=== PATIENT | male | born 1950 | race Caucasian/White ===

== ENCOUNTER 2016-09-04 16:46 | Inpatient (IN) | payer BC, MEDICARE ==
--- NOTE | ~2016-09-04 | CN ---
Consultation Report [facility] [address] [place]. [address] NAME: LLOYD ROMERO : 50 STATUS : ADM IN [facility]#: [id number] AGE: 66 ADM/REG DATE : 09/04/16 MR#: [id number] REPORT SERV DATE: 09/09/16 DICTATED BY: JUAN R KNUTSON DATE: 09/08/16 REPORT STATUS : Draft TRANSCRIBED BY: MODKarie DATE: 09/08/16 INFECTIOUS DISEASE CONSULT DATE OF CONSULTATION: REASON FOR CONSULT: Positive sputum culture for gram-negative rods and history of C. diff. 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 Johan Liu with Pulmonary. He was admitted on the 09/04/2016 for high fever. He tells me that he was in [place], [place], when he developed chills. Upon returning home to [place], he noticed the fever. He came to the emergency room where his temperature was 103.1. He also noticed some increased sputum production of green sputum. To me, he did not report any increased cough or shortness of breath or chest pain, although he did mention with another physician some right lateral posterior chest pain increased by coughing. He was started on cefepime, vancomycin plus he got a high dose of Solu-Medrol in the emergency room. LAB WORK: On admission, WBC 13, platelets 149, creatinine 0.9. Lactic acid 1.0. Urinalysis unremarkable. ABGs showed a PaO2 of 115 and saturation 98% on 44%. No sputum culture was collected on admission. This was done the next day on the 09/05/2016 and is currently growing sparse gram-negative rods that were not identified. Of note is that the procalcitonin on the 09/05/2016 was 0.2. He was continued on cefepime and he feels better. There is no recorded fever, and he coughs mostly after breathing treatments then in the morning, so he has no increased sputum production and no chest pain. He did not report any diarrhea. No nausea. No urinary symptoms. No toothaches. No skin rashes. No skin sores. PAST MEDICAL HISTORY: He was diagnosed with sarcoidosis a long time ago at [facility]. After that he moved to multiple places including [place], [place]; [place], [place]; [place], [place]; and that he has been in [place], [place] for 11 years. He states he did well until he moved to this area. He thinks he had workup by Dr. Liu for immune deficiency and allergies. He saw an lacing string cutter at one time. He took the steroids for a long period of time and developed osteoporosis and multiple vertebral fractures requiring kyphoplasty. He also apparently developed diabetes, although his last hemoglobin A1c in our computer was below 6. Chart mentions history of enlarged prostate, history of cholecystectomy, and history of kidney stones. ALLERGIES: AMONG OTHER SULFA CAUSED RASH. LISTED ARE GLUTEN AND MILK. 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 He has not really been around the children. He did not wear a mask. He does have grandchildren, but none of that they have Consultation Report [address] [place]. [address] NAME: LLOYD ROMERO : 50 STATUS : ADM IN [facility]#: [id number] AGE: 66 ADM/REG DATE : 09/04/16 MR#: [id number] REPORT SERV DATE: 09/09/16 DICTATED BY: JUAN R KNUTSON DATE: 09/08/16 REPORT STATUS : Draft TRANSCRIBED BY: ERICA DATE: 09/08/16 been sick, no immediate contacts that have been sick. He did not eat any foods that were raw. He states he received the usual vaccines including anti-influenza and anti- pneumococcal vaccine. He does not smoke. He has no pets. FAMILY HISTORY: As I mentioned, no sick contacts. MEDICATIONS ON ADMISSION: Albuterol, Chlor-Trimeton or chlorpheniramine p.r.n. for seasonal allergies, vitamin D3, Nexium, Neurontin, Lowry as needed, magnesium oxide, metformin, Flomax, probiotics. PHYSICAL EXAMINATION: GENERAL: He is alert. He has oxygen. He coughed a little bit when I asked him to sit up. No oral thrush. Sclerae are white. HEART: Regular rhythm with a soft murmur in all auscultation areas. ABDOMEN: Soft, nontender to palpation. SKIN: Without rash. JOINTS: Without obvious swelling. LUNGS: With decreased sounds throughout, but at the bases, there is a mix of very fine wheezing, inspiratory and expiratory, maybe some crackles, maybe some rub. LABORATORY DATA: Lab work on the 09/06/2016, creatinine 1.0, BUN 28. Liver enzymes within normal limits. Platelets decreased to 93, WBC to 11, hemoglobin 11. Admission blood culture negative. Sputum culture with sparse gram-negative rods, although the Gram stain had mostly gram positives in yeast. ASSESSMENT AND PLAN: 1. The patient admitted with fever, chills, increased sputum production that is now orally improved or resolved. 2. Baseline respiratory failure, on home oxygen secondary to pulmonary fibrosis and bronchiectasis according to the chart. 3. Airway colonization with multi-drug resistant Pseudomonas with the last sputum culture from available here, from March 2016, growing Pseudomonas fluorescens sensitive to gentamicin and tobramycin, resistant to Cipro and a high CARLA to cefepime of 8, aztreonam 8, Zosyn of 64, carbapenem is not reported. 4. History of Clostridium difficile, last time in March of 2016. He reports a clinical improvement on current regimen of cefepime, so I will not change it. I will add prophylactic oral vancomycin. He continues to improve and he is back to baseline. I would not continue antibacterial since that I would focus on helping with the respiratory secretions clearing in order to prevent future exacerbations. This could involve the mucolytics, chest CT, increased moisture to help fluidify secretions, pulmonary rehab, etc. Follow up chest x-ray and routine lab work. Follow up final sputum culture. I discussed with the patient the above. I also reviewed the old records in the [facility] computer. Consultation Report [facility] [address] [place]. [address] NAME: LLOYD ROMERO : 50 STATUS : ADM IN PAT#: [id number] AGE: 66 ADM/REG DATE : 09/04/16 MR#: [id number] REPORT SERV DATE: 09/09/16 DICTATED BY: JUAN R KNUTSON DATE: 09/08/16 REPORT STATUS : Draft TRANSCRIBED BY: ERICA DATE: 09/08/16 ALCIDES/ERICA Juan R Knutson M.D. / [id number] CC: Garret Bailey JR.,JUAN R Ivy
--- NOTE | ~2016-09-04 | CN ---
Consultation Report [facility] [address] [place]. [address] NAME: LLOYD GASPAR : 50 STATUS : ADM IN PAT#: [id number] AGE: 66 ADM/REG DATE : 09/04/16 MR#: [id number] REPORT SERV DATE: 09/05/16 DICTATED BY: BHAVANA CHANDRA DATE: 09/05/16 REPORT STATUS : Draft TRANSCRIBED BY: ERICA DATE: 09/05/16 CONSULTATION DATE OF CONSULTATION: Thank you for the opportunity to consult on this patient. HISTORY OF PRESENT ILLNESS: Mr. Gaspar is a 66-year-old man well known to our practice. He is followed by Dr. Liu. Mr. Gaspar has quite severe pulmonary fibrosis with extensive bronchiectasis and previous hospitalizations for exacerbations. He was diagnosed with sarcoidosis about twenty five years ago at [facility]. He had moved to [place], [place], lived there for about four years, and in [place] was followed by local sheep shearer, went into remission, and did not require much treatment. After that, he had been fairly stable for years, but moved on and off related to his work, and since being back here about ten or eleven years ago, has had more respiratory complaints, frequent allergies, frequent bronchitis, and progression of his chronic lung disease. He has been on steroids and developed osteoporosis related to his steroid use and had multiple compression vertebral fractures. He had been in his usual state of health, but developed first low-grade fever, and then a very high fever with shaking chills and increased production of copious purulent sputum. He has been started on antibiotics and since last night has actually felt better. PAST MEDICAL HISTORY: Significant for severe bronchiectasis and pulmonary fibrosis, which appears postinflammatory in nature with a previous history of sarcoidosis as well. He has a history of diabetes, hypertension, osteoporosis, osteopenia, osteoarthritis, and BPH. SOCIAL HISTORY: Negative for tobacco use. No alcohol abuse or illicit drug use. He has traveled extensively throughout the world in his work with [employer], though no recent foreign travel. FAMILY HISTORY: Noncontributory to this acute presentation. REVIEW OF SYSTEMS: Review of 10 systems was performed and is positive for what was noted above. PHYSICAL EXAMINATION: GENERAL: On exam, he is awake and alert, appearing chronically ill, but in no acute distress. VITAL SIGNS: Stable. HEENT: Normocephalic, atraumatic. NECK: Supple. No lymphadenopathy. No JVD. CHEST: Symmetric with good expansion bilaterally. He has bilateral rhonchi. CARDIOVASCULAR: He has S1 and S2, which are regular rate and rhythm. ABDOMEN: Benign. He has no edema, no clubbing, no cyanosis. Consultation Report [address] [place]. [address] NAME: LLOYD GASPAR : 50 STATUS : ADM IN PAT#: [id number] AGE: 66 ADM/REG DATE : 09/04/16 MR#: [id number] REPORT SERV DATE: 09/05/16 DICTATED BY: BHAVANA CHANDRA DATE: 09/05/16 REPORT STATUS : Draft TRANSCRIBED BY: ERICA DATE: 09/05/16 ASSESSMENT AND PLAN: Bronchiectasis with acute exacerbation. He has very severe extensive bronchiectasis and is at least colonized with Pseudomonas. He had Pseudomonas aeruginosa in his cultures from 10/2014 and 02/2016 and this was still fairly sensitive isolate. It was intermediately sensitive to quinolones, but sensitive to most other classes. We agree with current therapy with cefepime. He did have a Pseudomonas fluorescens in his cultures from 03/2016, but that was also fairly widely sensitive other than to quinolones. We then agree with current antibiotic therapy, current medical therapy, and we will continue to monitor him with you. He has provided a new sputum sample and we will provide him with a new flutter valve. We appreciate the opportunity to participate in his care with you. Please do not hesitate to contact me if I could be of any further assistance. SANDEEP/ERICA Bhavana Chandra M.D. / [id number] CC: MD Juan R Castro M.D.
--- NOTE | ~2016-09-04 | IDS ---
Interim Discharge Summary [facility] [address] [place]. [address] NAME: LLOYD GASPAR : 50 STATUS : ADM IN [facility]#: [id number] AGE: 66 ADM/REG DATE : 09/04/16 MR#: [id number] REPORT SERV DATE: 09/09/16 DICTATED BY: TERRELL SNYDER DATE: 09/08/16 REPORT STATUS : Draft TRANSCRIBED BY: MODKarie DATE: 09/08/16 ADMISSION DATE: 09/04/2016 DISCHARGE DATE: DIAGNOSES: So far on this patient include the followin. Bronchiectasis and recurrent infection with most likely Pseudomonas as the patient is colonized with Pseudomonas. The patient is on IV cefepime for this. 2. His repeat sputum cultures are pending at this time. Further treatment of this will depend on what his culture will grow. If his sputum grows Pseudomonas again, then the sensitivities have to be looked into, and the patient may very well have to receive IV cefepime for a total number of 14 days. The patient specifically says that he has had infection with C. diff before, and he prefers not to take antibiotics by mouth at this time. However, further management will depend on sputum culture. Other diagnoses in this patient include chronic diagnosis which are all pulmonary essentially includin. Severe pulmonary fibrosis. 2. Pulmonary sarcoidosis. 3. Bronchiectasis with multiple admissions for multiple antibiotics. 4. Chronic hypoxic respiratory failure, for which patient typically uses nocturnal oxygen only and has not required any daytime oxygen so far. 5. His career services manager is Dr. Lombardo, and Dr. Lombardo and also Dr. Stacey Quintana continue to see this patient while in the hospital. Other diagnoses that are not of significance at this time include: 1. History of nephrolithiasis, which is stable. 2. BPH, which is stable. 3. History of gastritis and colonic polyps, which are stable. 4. Diabetes with an A1c of 5.7, which is not an acute issue at this time. 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 He was admitted on 09/04/[address] Gordon with acute hypoxic respiratory failure, and Pulmonary was consulted. The patient was promptly started on IV cefepime because his sputum cultures have come back with Pseudomonas in the past. Within the next 24 to 48 hours itself, the patient's pulmonary function status significantly improved. Now, he continues to require oxygen of about 2-3 L/minute per nasal cannula during daytime and continues to be somewhat short of breath and wheezy. His sputum cultures are still pending. So while he is on IV cefepime, further treatment will be based on what his sputum cultures grow. This patient will be taken over by my partner and will be cared for by my colleague on 09/09/2016. BRITTANY/ERICA Terrell Barr Interim Discharge Summary [address] [address] NAME: KIA GASPARMargot XAVIERGERTRUDE : 50 STATUS : ADM IN PAT#: [id number] AGE: 66 ADM/REG DATE : 09/04/16 MR#: [id number] REPORT SERV DATE: 09/09/16 DICTATED BY: TERRELL SNYDER DATE: 09/08/16 REPORT STATUS : Draft TRANSCRIBED BY: ERICA DATE: 09/08/16 Garret Snyder / [id number] CC: Juan R Gaspar M.D.
--- NOTE | ~2016-09-04 | HP ---
History And Physical [facility] [id number] [place]. [address] NAME: LLOYD ROMERO : 50 STATUS : ADM IN PAT#: [id number] AGE: 66 ADM/REG DATE : 09/04/16 MR#: [id number] REPORT SERV DATE: 09/05/16 DICTATED BY: DUKE FLORES DATE: 09/04/16 REPORT STATUS : Draft TRANSCRIBED BY: MODL DATE: 09/04/16 DATE OF ADMISSION: 09/04/2016 CHIEF COMPLAINT: A 66-year-old male with severe pulmonary fibrosis and sarcoidosis, now presenting with increasing shortness of breath and cough. HISTORY OF PRESENT ILLNESS: The patient's history was obtained through careful interview with the patient, , coupled with review of [employer] and [facility] medical records. The patient has been feeling worse with his chronic shortness of breath because of the spring season and increased pollen. 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 Its while traveling with his that he became increasingly ill. He states that for the last two or three days, it has been "like a nightmare." He has had a cough productive of a thick green sputum (with no blood in it). He has had to use nasal cannula oxygen 24 hours a day. He has developed fevers, chills, and rigors today. Over these last few days, he has developed increasing right lung pain at the base of his lungs, towards the back, exacerbated by breathing and really triggered by coughing. Its baseline about 6/10 in severity, but it is up to about 9/10 in severity. He describes one episode of loose stools on the day of admission. He has had about 100-pound weight loss over the last three years, but this corresponds both with the onset of pulmonary fibrosis as well as multiple compression fractures of the spine. He claims his diabetes is under good control. REVIEW OF SYSTEMS: Otherwise, a 14-point review of systems was obtained was negative. PAST MEDICAL HISTORY: 1. Pulmonary fibrosis, on nighttime nasal cannula oxygen, diagnosed about four years ago. 2. Sarcoidosis. 3. Pneumonia. 4. Diabetes, hemoglobin A1c of 5.7 in July 2016, greatly effected by steroid use. 5. C. difficile colitis. 6. Nephrolithiasis. 7. Bronchiectasis. 8. Benign prostatic hypertrophy. 9. Gastritis. 10.Colon polyps, seen by Dr. Hernandez. PAST SURGICAL HISTORY: Kyphoplasties and cholecystectomy. History And Physical [address] [place]. [address] NAME: LLOYD ROMERO : 50 STATUS : ADM IN PAT#: [id number] AGE: 66 ADM/REG DATE : 09/04/16 MR#: [id number] REPORT SERV DATE: 09/05/16 DICTATED BY: DUKE FLORES DATE: 09/04/16 REPORT STATUS : Draft TRANSCRIBED BY: ERICA DATE: 09/04/16 ALLERGIES: GLUTEN, MILK, SYMBICORT, AND SULFA. SOCIAL HISTORY: No tobacco abuse. No alcohol abuse. He is . He has two sons. Lives in [place], [place]. 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 FAMILY HISTORY: Mother and grandmother with lung problems, but they were nonsmokers. No cardiac disease known. CURRENT MEDICATIONS: Include albuterol inhaler, Benadryl, vitamin D, Nexium 40 mg p.o. daily, Neurontin 300 mg p.o. q.h.s., hydrocodone, magnesium, metformin 500 mg p.o. b.i.d., nitroglycerin, Flomax 0.4 mg p.o. q.h.s., and probiotics. PHYSICAL EXAMINATION: VITAL SIGNS: Temperature 103.1, pulse 131, blood pressure 122/81, respiratory rate 30, and O2 saturation 84% on 3 liters nasal cannula. GENERAL: A pleasant, cooperative male, but he is in some distress secondary to coughing and shortness of breath. HEENT: Pupils are equal, round, and reactive to light. No conjunctival pallor. No scleral icterus. Nares are patent. Oropharynx is clear of obstruction. Moist mucous membranes. NECK: Trachea midline. No thyromegaly. LYMPH: No cervical lymphadenopathy. No supraclavicular lymphadenopathy. RESPIRATORY: The patient has an exam that primarily is dry crackle of pulmonary fibrosis. There may be some underlying rhonchi as well, but it is difficult to interpret because of the severity of his chronic lung disease. No rales are appreciated. No focal egophony. The patient does have a labored respiratory effort. CARDIOVASCULAR: Tachycardic. Regular rhythm. No murmurs, rubs, or gallops. No extremity edema is appreciated. ABDOMEN: Soft, nontender, and nondistended. Normal bowel sounds auscultated throughout. No hepatosplenomegaly. DERMATOLOGICAL: Warm and dry extremities. No pallor. No cyanosis. PSYCHIATRIC: Normal affect. Good mood. Alert and oriented x3. LABORATORY DATA: White blood cell count 13.7, hemoglobin 12, hematocrit 35, and platelets 149. Sodium 134, potassium 3.9, chloride 98, bicarb 31, BUN 15, creatinine 0.98, and glucose 110. Brain natriuretic peptide 69. Troponin negative. Lactic acid 1.0. INR 1.1. ABG demonstrates pH 7.48, a PaCO2 of 33, a PaO2 of 115, and bicarb of 24. Urinalysis negative for infection. STUDIES: Chest x-ray by my own evaluation shows chronic severe pulmonary fibrosis, but uncertain that there is any real change from old x-rays in comparison. ASSESSMENT AND PLAN: 1. Sepsis with positive criteria that includes white blood cell count of 13.7, fever of 103.1, tachycardia and tachypnea with increasing hypoxia. Check blood cultures. Check sputum cultures. Place on IV antibiotics. History And Physical [address] [address] NAME: LLOYD ROMERO : 50 STATUS : ADM IN [facility]#: [id number] AGE: 66 ADM/REG DATE : 09/04/16 MR#: [id number] REPORT SERV DATE: 09/05/16 DICTATED BY: DUKE FLORES DATE: 09/04/16 REPORT STATUS : Draft TRANSCRIBED BY: MODL DATE: 09/04/16 2. Hypoxic respiratory failure. Provide supportive care. 3. Suspected pneumonia or complicated bronchiectasis. Check sputum culture. Place on IV antibiotics including cefepime to cover for potential Pseudomonas or other atypical organism. Consult Dr. Liu, sales and service technician. 4. Severe pulmonary fibrosis. 5. Sarcoidosis. KPL/MODL Duke Flores M.D. / [id number] CC: MD Juan R Castro M.D. Nathan Mull IV, M.D.
--- NOTE | ~2016-09-04 | DS ---
Discharge Summary [address] [place]. [address] NAME: LLOYD ROMERO : 50 STATUS : DIS IN PAT#: [id number] AGE: 66 ADM/REG DATE : 09/04/16 MR#: [id number] REPORT SERV DATE: 09/16/16 DICTATED BY: RAYMUNDO JAIN DATE: 09/13/16 REPORT STATUS : Draft TRANSCRIBED BY: ERICA DATE: 09/13/16 ADMISSION DATE: 09/04/2016 DISCHARGE DATE: 09/13/2016 CONSULTATIONS: 1. Infectious Disease, Dr. Juan R Zamora. 2. Pulmonology, Dr. Edgard Lombardo. INVASIVE PROCEDURE: None. DISCHARGE DIAGNOSES: 1. Chronic respiratory failure. 2. Sepsis. 3. Pneumonia secondary to Pseudomonas aeruginosa. 4. Pulmonary sarcoidosis. 5. History of bronchiectasis. 6. History of nephrolithiasis. 7. History of BPH. 8. History of gastritis and colonic polyps. 9. Diabetes mellitus type 2. 10.History of Clostridium difficile colitis. DISCHARGE CONDITION: Stable. HPI: Please make reference to Dr. Priyank Edouard's dictation on 09/04/2016. In brief, a 66-year-old male with history of chronic respiratory failure, pulmonary fibrosis, sarcoidosis, and bronchiectasis who presented to the emergency department with complaints of worsening cough productive of greenish sputum, associated worsening shortness of breath requiring nasal cannula oxygen 24 hours a days as opposed to nighttime only. In the emergency room, was found to have a temperature of 103.1, pulse of 131, blood pressure 122/81, respiratory rate of 30, saturating 84% on 2 L of oxygen. Physical examination significant for diffuse crackles. Laboratory data with white blood cell count of 13.7. Lactic acid 1.0. PH 7.48, PaCO2 of 33, PaO2 of 115 on 3 L of oxygen. Urinalysis negative. Chest x-ray showed features suggestive of chronic pulmonary fibrosis. An assessment of sepsis secondary to pneumonia was made in the ER, and the patient was admitted to the Hospitalist Service. HOSPITAL COURSE: Acute on chronic hypoxic respiratory failure secondary to pneumonia due to Pseudomonas aeruginosa. The patient was started on broad-spectrum IV antibiotics with cefepime. Blood culture was obtained. Sputum culture was also obtained. The patient's blood culture was negative. Sputum culture grew Pseudomonas aeruginosa. The patient has extensive history of colonization with pseudomonas. Infectious Disease was consulted. After review of the sensitivities, it was noted that the CARLA to cefepime was high. Cefepime Discharge Summary [address] [facility] [place]. [address] NAME: LLOYD ROMERO : 50 STATUS : DIS IN PAT#: [id number] AGE: 66 ADM/REG DATE : 09/04/16 MR#: [id number] REPORT SERV DATE: 09/16/16 DICTATED BY: RAYMUNDO JAIN DATE: 09/13/16 REPORT STATUS : Draft TRANSCRIBED BY: ERICA DATE: 09/13/16 was subsequently discontinued. The patient was started on tobramycin nebulizer. His oxygenation became significantly improved after initiation of this antibiotic. Pulmonology was on board throughout the course of this admission and helped guide the management of the patient's acute on chronic hypoxic respiratory failure. Given his extensive history of bronchiectasis and sarcoidosis, the patient was placed on DuoNeb throughout the course of admission. The patient's wheezing also subsequently improved. At the time of discharge, the patient had returned back to a baseline of 2 L of oxygen. The patient had a 6-minute walk that qualified him to use his oxygen both daytime and nighttime. Other contributing factors, the patient was advised to continue followup with orchestrator Dr. Liu as an outpatient. DISCHARGE FOLLOWUP: 1. The patient is to follow up with Pulmonology as an outpatient. 2. Follow up with primary care physician. DISCHARGE MEDICATIONS: 1. Tobramycin nebulization for the next seven days. 2. Vancomycin p.o. q.12 hours for C diff prophylaxis. 3. Metformin 500 mg p.o. b.i.d. 4. Vitamin D 5000 units p.o. daily. 5. Gabapentin 300 mg p.o. at bedtime. 6. Loratadine 10 mg p.o. daily. 7. Nexium 40 mg p.o. every morning. 8. Flomax 0.4 mg p.o. daily. 9. Albuterol two puffs p.r.n. 10.Albuterol solution for nebulization p.r.n. 11.Dawn 5/325 p.o. tab daily. DISCHARGE ACTIVITY: As tolerated. DISCHARGE DISPOSITION: Home with family. Greater than 35 minutes were used to prepare this patient's discharge, reconcile medication, and advise the patient on discharge plans and followup. DICTATED BY: MD CANELO Storm/ERICA Raymundo Jain MD / [id number] Discharge Summary [address] [address] NAME: LLOYD ROMERO : 50 STATUS : DIS IN PAT#: [id number] AGE: 66 ADM/REG DATE : 09/04/16 MR#: [id number] REPORT SERV DATE: 09/16/16 DICTATED BY: RAYMUNDO JAIN DATE: 09/13/16 REPORT STATUS : Draft TRANSCRIBED BY: ERICA DATE: 09/13/16 CC: MD Juan R Storm M.D. Carlos Baleeiro, M.D. Paul Cornea, M.D.
[~2016-09-04 16:46] MED LIST: ACCUNEB INH; ALLEGRA180 PO; ASAB PO; AZACT2 IV; B COMPLETE PO; ENDOCET1 TAB PO; EPIPEN0.3 IM; FISH-EPA1000 MG PO; FLOMAX4 PO; FLONASE NAS; FLORASTOR250 MG PO; FORTEO SC; GLUCPH PO; MAGOX4 PO; MUCINEX600 MG PO; MULTI-VIT HP PO; MULTIPLE VIT PO; NEUR300 PO; NEXIUM40 PO; NITROSTAT0.4 MG SL; PROAIR HFA INH; PROVENTSOL INH; SINGULAIR1 PO; SYMBICORT 160/41 INH INH; VALTREX1 GM PO; VANCOCIN HCL125 MG PO; VENTOLIN HFA INH; VITAMIN B-12 PO; VITAMIN B-121000 MC1 SL; VITAMIN B-6 PO; VITAMIN D PO; VITAMIN D400 UNI1 PO; [UNRECOGNIZED DRUG - OTHER] PO
[2016-09-04 17:12] LABS: ALLENS TEST Pos; BE (BASE EXCESS) 0.8 MEQ/L (0 +/- 2.5); CARBOXYHEMOGLOBIN 1.7 % (0-3); DEVICE NC; HCO3 (ACTUAL BICARBONATE) 23.9 MEQ/L (23-27); HEMOBLOGIN CONTENT 12.3 G/DL (14-18); INSTRUMENT SERIAL # 8087; METHEMOGLOBIN 0.3 % (0-3); O2 CONTENT 16.9 VOL% (18-24); PCO2 (CO2 TENSION) 33 MMHG (35-45); PO2 (O2 TENSION) 115 MMHG (79-93); SAMPLE Arterial; pH 7.48 (7.37-7.43)
[2016-09-04 17:21] LABS: BASOPHILS 0.1 %; BASOPHILS ABSOLUTE 0.01 10/3/uL (0.0-0.16); EOSINOPHILS 0.5 %; EOSINOPHILS ABSOLUTE 0.07 10/3/uL (0.0-0.53); IMMATURE GRANULOCYTES 0.1 %; IMMATURE GRANULOCYTES ABSOLUTE 0.02 10/3/uL (0.0-0.11); LYMPHOCYTES 11.2 %; LYMPHOCYTES ABSOLUTE 1.54 10/3/uL (0.67-4.30); MEAN CORPUS HGB CONC 34.1 g/dL (32.0-36.0); MEAN CORPUSCULAR HEMOGLOB 32.7 pg (26.0-34.0); MEAN CORPUSCULAR VOLUME 95.9 fL (80-100); MEAN PLATELET VOLUME 10.4 fL (9.2-13.0); MONOCYTES 7.8 %; MONOCYTES ABSOLUTE 1.07 10/3/uL (0.21-1.20); NEUTROPHILS 80.3 %; NEUTROPHILS ABSOLUTE 11.03 10/3/uL (2.02-8.40); PLATELET COUNT 149 10/3/uL (150-400); RBC DISTRIBUTION WIDTH 12.4 % (12.0-16.0)
[2016-09-04 17:23] LABS: ER CBC TAT 0 Hrs 11 Mins; HEMATOCRIT 34.9 % (40.0-51.0); HEMOGLOBIN 11.9 g/dL (13.6-17.8); MANUAL DIFF NO %; RED CELL COUNT 3.64 10/6/uL (4.7-6.1); WHITE BLOOD CELLS 13.7 10/3/uL (4.5-10.5)
[2016-09-04 17:24] LABS: INTERNATIONAL NORMAL RATI 1.1 UNITS (-); PARTIAL THROMBO TIME 28.7 SEC (22.5-37.2); PROTIME (NOT ORD) 14.3 SEC (12.0-14.5)
[2016-09-04 17:34] LABS: BUN (BLOOD UREA NITROGEN) 15 MG/DL (6-23); CHLORIDE, SERUM 98 MMOL/L (96-112); CO2 (CARBON DIOXIDE) 31 MMOL/L (24-34); CREATININE 0.98 MG/DL (0.70-1.30); GFR AFRICAN AMERICAN 93 ML/MIN (>=60); GFR NON AFRICAN AMERICAN 80 ML/MIN (>=60); GLUCOSE, SERUM 110 MG/DL (60-99); POTASSIUM, SERUM 3.9 MMOL/L (3.5-5.3); SGOT(AST) 16 U/L (5-40); SGPT(ALT) 16 U/L (5-65); TOTAL BILIRUBIN 0.7 MG/DL (0-1.2); TOTAL PROTEIN 8.4 G/DL (6.0-8.5); TROPONIN I <0.02 NG/ML (<0.05)
[2016-09-04 17:35] LABS: A/G RATIO 0.6 (0.7-1.9); ALBUMIN 3.2 G/DL (3.5-5.0); ALKALINE PHOSPHATASE 97 U/L (45-117); CALCIUM, SERUM 10.1 MG/DL (8.5-10.4); GLOBULIN 5.2 G/DL (2.5-4.1); SODIUM, SERUM 134 MMOL/L (135-148)
[2016-09-04 17:47] LABS: WBC (NOT ORDERED) (RFLEX) 0 (0-5)
[2016-09-04] MEDS ORDERED: NEXIUM40 PO (17:51)
[2016-09-04] MEDS ORDERED: GLUCPH PO (17:51)
[2016-09-04] MEDS ORDERED: ALBUTEROL0.083 % INH (17:51)
[2016-09-04] MEDS ORDERED: FLOMAX4 PO (17:52)
[2016-09-04] MEDS ORDERED: NEUR300 PO (17:52)
[2016-09-04] MEDS ORDERED: NORCO1 TAB PO (17:53)
[2016-09-04] MEDS ORDERED: MAGOX4 PO (17:54)
[2016-09-04 17:55] LABS: ASCORBIC ACID (UR NOT ORDER) NEG (NEG); BILIRUBIN, URINE NEGATIVE (NEG); ER URINALYSIS TAT 0 Hrs 08 Mins; KETONE, URINE NEGATIVE (NEG); LEUKOCYTE ESTERASE(NOT OR NEG (NEG); NITRITE (URINE) NEG (NEG)
[2016-09-04] MEDS ORDERED: EPIPEN0.3 IM (17:55)
[2016-09-04] MEDS ORDERED: PROAIR HFA INH (17:56)
[2016-09-04] MEDS ORDERED: CHLOR-TRIMETON4 MG PO (17:56)
[2016-09-04] MEDS ORDERED: VITAMIN D31000 UNIT PO (17:57)
[2016-09-04] MEDS ORDERED: PROBIOTIC PO (17:57)
[2016-09-04] MEDS ORDERED: NITROSTAT0.4 MG SL (17:58)
[2016-09-05 04:12] LABS: BASOPHILS 0 %; EOSINOPHILS 0 %; HEMOGLOBIN 10.7 g/dL (13.6-17.8); IMMATURE GRANULOCYTES 0.2 %; IMMATURE GRANULOCYTES ABSOLUTE 0.02 10/3/uL (0.0-0.11); LYMPHOCYTES 4.1 %; LYMPHOCYTES ABSOLUTE 0.41 10/3/uL (0.67-4.30); MEAN CORPUS HGB CONC 34.5 g/dL (32.0-36.0); MEAN CORPUSCULAR HEMOGLOB 32.8 pg (26.0-34.0); MEAN CORPUSCULAR VOLUME 95.1 fL (80-100); MEAN PLATELET VOLUME 10.3 fL (9.2-13.0); MONOCYTES 1.9 %; MONOCYTES ABSOLUTE 0.19 10/3/uL (0.21-1.20); NEUTROPHILS 93.8 %; PLATELET COUNT 122 10/3/uL (150-400); RBC DISTRIBUTION WIDTH 12.4 % (12.0-16.0); RED CELL COUNT 3.26 10/6/uL (4.7-6.1); WHITE BLOOD CELLS 9.9 10/3/uL (4.5-10.5)
[2016-09-05 04:15] LABS: MANUAL DIFF NO %
[2016-09-05 04:30] LABS: INTERNATIONAL NORMAL RATI 1.2 UNITS (-); PROTIME (NOT ORD) 15.5 SEC (12.0-14.5)
[2016-09-05 04:31] LABS: PARTIAL THROMBO TIME 37.8 SEC (22.5-37.2)
[2016-09-05 04:46] LABS: A/G RATIO 0.6 (0.7-1.9); ALBUMIN 2.7 G/DL (3.5-5.0); CALCIUM, SERUM 9.6 MG/DL (8.5-10.4); CHLORIDE, SERUM 101 MMOL/L (96-112); CO2 (CARBON DIOXIDE) 33 MMOL/L (24-34); CREATININE 0.93 MG/DL (0.70-1.30); GFR AFRICAN AMERICAN 99 ML/MIN (>=60); GFR NON AFRICAN AMERICAN 85 ML/MIN (>=60); GLOBULIN 4.6 G/DL (2.5-4.1); POTASSIUM, SERUM 3.5 MMOL/L (3.5-5.3); SGOT(AST) 10 U/L (5-40); SGPT(ALT) 13 U/L (5-65); SODIUM, SERUM 140 MMOL/L (135-148); TOTAL BILIRUBIN 0.3 MG/DL (0-1.2); TOTAL PROTEIN 7.3 G/DL (6.0-8.5); TROPONIN I <0.02 NG/ML (<0.05)
[2016-09-05 04:49] LABS: ALKALINE PHOSPHATASE 81 U/L (45-117); BUN (BLOOD UREA NITROGEN) 19 MG/DL (6-23); GLUCOSE, SERUM 182 MG/DL (60-99); ULTRASENSITIVE TSH 0.408 MCIU/ML (0.358-3.740)
[2016-09-06 03:55] LABS: BE (BASE EXCESS) 6.3 MEQ/L (0 +/- 2.5); INSTRUMENT SERIAL # 8083; PCO2 (CO2 TENSION) 57 MMHG (35-45); PO2 (O2 TENSION) 128 MMHG (79-93); pH 7.38 (7.37-7.43)
[2016-09-06 03:56] LABS: ALLENS TEST Pos; CARBOXYHEMOGLOBIN 0.2 % (0-3); DEVICE NC; HCO3 (ACTUAL BICARBONATE) 32.7 MEQ/L (23-27); HEMOBLOGIN CONTENT 10.5 G/DL (14-18); METHEMOGLOBIN 0.3 % (0-3); O2 CONTENT 14.7 VOL% (18-24); OPERATOR ID 19993; SAMPLE Arterial
[2016-09-06 05:11] LABS: BASOPHILS 0.1 %; BASOPHILS ABSOLUTE 0.01 10/3/uL (0.0-0.16); EOSINOPHILS 0.9 %; HEMATOCRIT 32.4 % (40.0-51.0); IMMATURE GRANULOCYTES 0.3 %; IMMATURE GRANULOCYTES ABSOLUTE 0.03 10/3/uL (0.0-0.11); LYMPHOCYTES 25.1 %; MEAN CORPUSCULAR HEMOGLOB 33.3 pg (26.0-34.0); MEAN PLATELET VOLUME 10.6 fL (9.2-13.0); MONOCYTES 10.2 %; MONOCYTES ABSOLUTE 1.18 10/3/uL (0.21-1.20); NEUTROPHILS 63.4 %; NEUTROPHILS ABSOLUTE 7.32 10/3/uL (2.02-8.40); PLATELET COUNT 93 10/3/uL (150-400); RBC DISTRIBUTION WIDTH 12.7 % (12.0-16.0); WHITE BLOOD CELLS 11.5 10/3/uL (4.5-10.5)
[2016-09-06 05:19] LABS: MANUAL DIFF NO %; MEAN CORPUSCULAR VOLUME 98.2 fL (80-100)
[2016-09-06 05:27] LABS: CALCIUM, SERUM 9.8 MG/DL (8.5-10.4); CHLORIDE, SERUM 100 MMOL/L (96-112); CO2 (CARBON DIOXIDE) 36 MMOL/L (24-34); CREATININE 1.06 MG/DL (0.70-1.30); GFR AFRICAN AMERICAN 84 ML/MIN (>=60); GFR NON AFRICAN AMERICAN 73 ML/MIN (>=60); SODIUM, SERUM 139 MMOL/L (135-148)
[2016-09-06 05:28] LABS: BUN (BLOOD UREA NITROGEN) 28 MG/DL (6-23); GLUCOSE, SERUM 91 MG/DL (60-99)
[2016-09-09 04:43] LABS: INSTRUMENT SERIAL # 35151; PCO2 (CO2 TENSION) 56 MMHG (35-45); pH 7.43 (7.37-7.43)
[2016-09-09 04:44] LABS: CARBOXYHEMOGLOBIN 0.6 % (0-3); HCO3 (ACTUAL BICARBONATE) 36.1 MEQ/L (23-27); HEMOBLOGIN CONTENT 11.8 G/DL (14-18); METHEMOGLOBIN 0.6 % (0-3); O2 CONTENT 15.8 VOL% (18-24); PO2 (O2 TENSION) 83 MMHG (79-93); SAMPLE Arterial
[2016-09-09 05:12] LABS: BASOPHILS 0.2 %; BASOPHILS ABSOLUTE 0.02 10/3/uL (0.0-0.16); EOSINOPHILS 6.5 %; EOSINOPHILS ABSOLUTE 0.57 10/3/uL (0.0-0.53); HEMATOCRIT 31.7 % (40.0-51.0); HEMOGLOBIN 10.8 g/dL (13.6-17.8); IMMATURE GRANULOCYTES 0.2 %; IMMATURE GRANULOCYTES ABSOLUTE 0.02 10/3/uL (0.0-0.11); LYMPHOCYTES 22.2 %; LYMPHOCYTES ABSOLUTE 1.93 10/3/uL (0.67-4.30); MEAN CORPUS HGB CONC 34.1 g/dL (32.0-36.0); MEAN CORPUSCULAR VOLUME 96.9 fL (80-100); MEAN PLATELET VOLUME 10.5 fL (9.2-13.0); MONOCYTES 12.5 %; MONOCYTES ABSOLUTE 1.09 10/3/uL (0.21-1.20); NEUTROPHILS 58.4 %; NEUTROPHILS ABSOLUTE 5.08 10/3/uL (2.02-8.40); PLATELET COUNT 96 10/3/uL (150-400); RBC DISTRIBUTION WIDTH 12.2 % (12.0-16.0); RED CELL COUNT 3.27 10/6/uL (4.7-6.1); WHITE BLOOD CELLS 8.7 10/3/uL (4.5-10.5)
[2016-09-09 05:15] LABS: MANUAL DIFF NO %
[2016-09-09 05:27] LABS: CALCIUM, SERUM 10.1 MG/DL (8.5-10.4); CHLORIDE, SERUM 97 MMOL/L (96-112); CO2 (CARBON DIOXIDE) 34 MMOL/L (24-34); CREATININE 0.83 MG/DL (0.70-1.30); GFR AFRICAN AMERICAN 106 ML/MIN (>=60); GFR NON AFRICAN AMERICAN 92 ML/MIN (>=60); GLUCOSE, SERUM 100 MG/DL (60-99); POTASSIUM, SERUM 4.1 MMOL/L (3.5-5.3); SODIUM, SERUM 138 MMOL/L (135-148)
[2016-09-09 05:30] LABS: BUN (BLOOD UREA NITROGEN) 21 MG/DL (6-23)
[2016-09-10 05:37] LABS: BASOPHILS 0.2 %; BASOPHILS ABSOLUTE 0.02 10/3/uL (0.0-0.16); EOSINOPHILS 5.1 %; EOSINOPHILS ABSOLUTE 0.61 10/3/uL (0.0-0.53); HEMATOCRIT 31.3 % (40.0-51.0); HEMOGLOBIN 10.7 g/dL (13.6-17.8); IMMATURE GRANULOCYTES 0.4 %; IMMATURE GRANULOCYTES ABSOLUTE 0.05 10/3/uL (0.0-0.11); LYMPHOCYTES 23.4 %; LYMPHOCYTES ABSOLUTE 2.78 10/3/uL (0.67-4.30); MEAN CORPUS HGB CONC 34.2 g/dL (32.0-36.0); MEAN CORPUSCULAR VOLUME 96.6 fL (80-100); MONOCYTES 10.2 %; MONOCYTES ABSOLUTE 1.21 10/3/uL (0.21-1.20); NEUTROPHILS 60.7 %; NEUTROPHILS ABSOLUTE 7.19 10/3/uL (2.02-8.40); RBC DISTRIBUTION WIDTH 12.5 % (12.0-16.0); RED CELL COUNT 3.24 10/6/uL (4.7-6.1); WHITE BLOOD CELLS 11.9 10/3/uL (4.5-10.5)
[2016-09-10 05:41] LABS: MANUAL DIFF NO %
[2016-09-10 05:54] LABS: CALCIUM, SERUM 10.2 MG/DL (8.5-10.4); CHLORIDE, SERUM 98 MMOL/L (96-112); CO2 (CARBON DIOXIDE) 38 MMOL/L (24-34); CREATININE 0.93 MG/DL (0.70-1.30); GFR AFRICAN AMERICAN 99 ML/MIN (>=60); GFR NON AFRICAN AMERICAN 85 ML/MIN (>=60); GLUCOSE, SERUM 86 MG/DL (60-99); POTASSIUM, SERUM 4.5 MMOL/L (3.5-5.3); SODIUM, SERUM 138 MMOL/L (135-148)
[2016-09-10 05:56] LABS: BUN (BLOOD UREA NITROGEN) 27 MG/DL (6-23)
[2016-09-10 07:37] LABS: BASOPHILS 0.2 %; BASOPHILS ABSOLUTE 0.02 10/3/uL (0.0-0.16); EOSINOPHILS 6.3 %; EOSINOPHILS ABSOLUTE 0.65 10/3/uL (0.0-0.53); HEMATOCRIT 30.8 % (40.0-51.0); HEMOGLOBIN 10.4 g/dL (13.6-17.8); IMMATURE GRANULOCYTES 0.5 %; IMMATURE GRANULOCYTES ABSOLUTE 0.05 10/3/uL (0.0-0.11); LYMPHOCYTES 22.1 %; LYMPHOCYTES ABSOLUTE 2.28 10/3/uL (0.67-4.30); MEAN CORPUS HGB CONC 33.8 g/dL (32.0-36.0); MEAN CORPUSCULAR HEMOGLOB 32.6 pg (26.0-34.0); MEAN CORPUSCULAR VOLUME 96.6 fL (80-100); MEAN PLATELET VOLUME 10.4 fL (9.2-13.0); MONOCYTES 9.5 %; MONOCYTES ABSOLUTE 0.98 10/3/uL (0.21-1.20); NEUTROPHILS 61.4 %; NEUTROPHILS ABSOLUTE 6.34 10/3/uL (2.02-8.40); RBC DISTRIBUTION WIDTH 12.4 % (12.0-16.0); RED CELL COUNT 3.19 10/6/uL (4.7-6.1); WHITE BLOOD CELLS 10.3 10/3/uL (4.5-10.5)
[2016-09-10 08:24] LABS: MANUAL DIFF NO %; PLATELET COUNT 165 10/3/uL (150-400)
[2016-09-10 08:25] LABS: PLATELET COUNT 165 10/3/uL (150-400)
[2016-09-11 05:15] LABS: BASOPHILS 0.3 %; BASOPHILS ABSOLUTE 0.03 10/3/uL (0.0-0.16); EOSINOPHILS 6.2 %; EOSINOPHILS ABSOLUTE 0.58 10/3/uL (0.0-0.53); HEMATOCRIT 32.6 % (40.0-51.0); HEMOGLOBIN 10.8 g/dL (13.6-17.8); IMMATURE GRANULOCYTES 0.4 %; IMMATURE GRANULOCYTES ABSOLUTE 0.04 10/3/uL (0.0-0.11); LYMPHOCYTES 28.1 %; LYMPHOCYTES ABSOLUTE 2.65 10/3/uL (0.67-4.30); MEAN CORPUS HGB CONC 33.1 g/dL (32.0-36.0); MEAN CORPUSCULAR HEMOGLOB 32.2 pg (26.0-34.0); MEAN CORPUSCULAR VOLUME 97.3 fL (80-100); MEAN PLATELET VOLUME 10.3 fL (9.2-13.0); MONOCYTES 12.7 %; NEUTROPHILS 52.3 %; NEUTROPHILS ABSOLUTE 4.92 10/3/uL (2.02-8.40); RBC DISTRIBUTION WIDTH 12.5 % (12.0-16.0); RED CELL COUNT 3.35 10/6/uL (4.7-6.1); WHITE BLOOD CELLS 9.4 10/3/uL (4.5-10.5)
[2016-09-11 05:18] LABS: MANUAL DIFF NO %
[2016-09-11 05:35] LABS: BUN (BLOOD UREA NITROGEN) 27 MG/DL (6-23); CHLORIDE, SERUM 99 MMOL/L (96-112); CO2 (CARBON DIOXIDE) 35 MMOL/L (24-34); CREATININE 0.97 MG/DL (0.70-1.30); GFR AFRICAN AMERICAN 94 ML/MIN (>=60); GFR NON AFRICAN AMERICAN 81 ML/MIN (>=60); GLUCOSE, SERUM 94 MG/DL (60-99); PHOSPHORUS, SERUM 3.2 MG/DL (2.5-4.5); POTASSIUM, SERUM 4.3 MMOL/L (3.5-5.3); SODIUM, SERUM 136 MMOL/L (135-148)
[2016-09-11 13:42] LABS: PLATELET COUNT 177 10/3/uL (150-400)
[2016-09-13] MEDS ORDERED: CLARIT10 PO (10:37)
[2016-09-13] MEDS ORDERED: FLORASTOR250 MG PO (10:42)
[2016-09-13] MEDS ORDERED: VANCOCIN HCL125 MG PO (10:47)
[2016-09-13] MEDS ORDERED: DUONEB INH (10:48)
[2016-09-13] MEDS ORDERED: TOBRAMYCIN300 MG/5 M INH (10:49)
== END 2016-09-13 11:33 | disposition home or self-care (01) | DRG 871 ==
LOC: ER 16:46 → 7NO 19:34
PROVIDERS: Emergency Medicine; Hospitalist
DX: A41.9 Sepsis, unspecified organism (principal); J96.21 Acute and chronic respiratory failure with hypoxia; J84.10 Pulmonary fibrosis, unspecified; J15.1 Pneumonia due to Pseudomonas; J47.1 Bronchiectasis with (acute) exacerbation; Z99.81 Dependence on supplemental oxygen; D86.9 Sarcoidosis, unspecified; E11.9 Type 2 diabetes mellitus without complications; N40.1 Benign prostatic hyperplasia with lower urinary tract symptoms; M80.88XS Other osteoporosis with current pathological fracture, vertebra(e), sequela; T38.0X5S Adverse effect of glucocorticoids and synthetic analogues, sequela; Z87.442 Personal history of urinary calculi; Z86.19 Personal history of other infectious and parasitic diseases; Z86.010 Personal history of colon polyps; Z88.2 Allergy status to sulfonamides; Z91.011 Allergy to milk products; Z91.018 Allergy to other foods; Z79.84 Long term (current) use of oral hypoglycemic drugs
CPT/HCPCS: 36600; 71010; 80048; 80053; 80069; 81001; 82805; 82962; 83605; 83735; 83880; 84145; 84443; 84484; 85025; 85610; 85730; 87040; 87070; 87077; 87186; 87205; 87449; 93005; 94640; 96374; 96375; 99285; A9270-GY; J0692; J2405; J2930; J3370; J3475